=== PATIENT | male | born 1950 | race African-American/Black ===

== ENCOUNTER 2016-07-09 18:13 | Inpatient (IN) ==
[2016-07-09] MEDS ORDERED: NS 1,000 ML IV ONE ×2 (18:20→18:36)
[2016-07-09 18:38] LABS: ALLEN TEST YES; BE -0.8 mmoll (-3.0-3.0); BLOOD TYPE ARTERIAL; DRAW SITE L RADIAL; METHB 1.5 % (0.0-1.5); O2(CT) 15.9 mL/dL (15.0-23.0); PCO2(98.6) 44 mmHg (35-45); PO2(98.6) 74 mmHg (60-100); SAMPLE BLOOD; SAO2 97.8 % (95.0-100.0); THB 12.5 g/dL (11.5-17.4); pH(98.6) 7.36 (7.35-7.45)
[2016-07-09 18:39] LABS: MODALITY CANNULA
[2016-07-09 18:48] LABS: MANUAL DIFF NEEDED? NO
[2016-07-09 18:51] LABS: EOS# 0.11 X1000 (0.0-0.7); EOS% 2.2 % (0.0-10.0); HEMATOCRIT 39.1 % (42.0-52.0); LYMPH# 1.87 X1000 (1.2-3.4); MCH 32.2 PG (27-31); MCHC 33.2 g/dL (33-37); MCV 96.8 FL (81-99); MONO# 0.53 X1000 (0.11-0.59); MONO% 10.5 % (1.7-9.3); MPV 10.5 FL (7.4-10.4); NEUT% 49.3 % (42.2-75.2); PLT 98 X1000 (130-400); RBC 4.04 XMIL (4.7-6.1)
[2016-07-09 19:21] LABS: AGAP 15; ALBUMIN 3.2 g/dL (3.5-5.0); ALKALINE PHOSPHATASE 60 U/L (32-122); BUN 16 mg/dL (8-22); CALCIUM 8.1 mg/dL (8.8-10.2); CHLORIDE 107 mmol/L (98-107); CK PROFILE 94 U/L (24-204); COSMO 285; GOT 17 U/L (10-34); GPT 13 U/L (10-44); MAGNESIUM 2.1 mg/dL (1.5-2.7); POTASSIUM 3.7 mmol/L (3.5-5.1); SODIUM 142 mmol/L (136-145); TCO2 20 mmol/L (25-35); TOTAL BILIRUBIN 0.42 mg/dL (0.20-1.00); TOTAL PROTEIN 5.9 g/dL (6.3-8.3)
[2016-07-09] MEDS ORDERED: ATIVAN IV ONE (19:53)
[2016-07-09] MEDS ORDERED: KEPPRA 1,000 MG in NS 100 ML IV ONE (19:53)
--- NOTE | 2016-07-09 20:46 | HISTORY AND PHYSICAL ---
PRIMARY CARE PHYSICIAN: Dr. Sanchez. CHIEF COMPLAINT: Mental status changes. HISTORY OF PRESENTING ILLNESS: This is a 65-year-old male with a previous history of TIA, hypertension, had presented to the emergency department because family found the patient unresponsive. Patient apparently had also low blood pressure. He was evaluated in the ER, he was somewhat hypotensive and he was given IV fluids and his blood pressure improved. However patient still was aphasic, not really able to communicate. He was also urinary incontinent. He had also some posturing during his examination and it was suspected possibly he was having a seizure. He was treated in the ER with Ativan and Keppra and the patient will need hospitalization for further management. Due to patient's current status he is unable to provide any history and most of the history is obtained from previous records. PAST MEDICAL HISTORY: Includes hypertension, arthritis, TIA. PAST SURGICAL HISTORY: None. ALLERGIES: No known drug allergies. CURRENT MEDICATIONS: As listed in MAR. SOCIAL HISTORY: A 40 pack years history of smoking, history of alcohol abuse, history of drug use in the past. FAMILY HISTORY: No history of coronary disease. REVIEW OF SYSTEMS: Unable to assess due to patient being aphasic. PHYSICAL EXAMINATION: GENERAL: The patient is resting comfortably. He is aphasic. VITAL SIGNS: Temperature 97.1 degrees, pulse 60, respirations 16, blood pressure 85/48. Repeat blood pressure is 150/78 after IV fluids. He is saturating 97%. HEENT: Atraumatic, normocephalic. NECK: No masses. CHEST: Clear to auscultation. CARDIOVASCULAR: Regular rate and rhythm. ABDOMEN: Soft. Positive bowel sounds. EXTREMITIES: No edema. NEURO: He is awake, however he is not communicating. : No bladder distention. SKIN: Warm. LABORATORIES AND STUDIES: WBC 5.06, hemoglobin 13.0, hematocrit 39.1, platelets is 98,000. Sodium 142, potassium 3.7, chloride 107, CO2 20, BUN is 16, creatinine is 1.4, glucose is 119. ASSESSMENT: A 65-year-old male with a history of hypertension, transient ischemic attack had presented to the emergency department due to mental status changes. It was suspected that he was having a seizure and possibly transient ischemic attack also. Patient will need hospitalization for further management. 1. Altered mental status. 2. Suspected seizures. 3. Possible transient ischemic attack will need to r/o CVA 4. Hypotension 5. Tobacco abuse. PLAN: 1. We will admit patient to medical floor with telemetry. 2. We will continue with neuro checks. 3. We will put patient on seizure precautions and continue patient Ativan and Keppra. 4. We will check an MRI of the brain. 5. Continue with IV fluids and monitor for any hypotensive signs. hold all antihypertensive home medication. 6. Will consider nicotine patch once patient is more alert. 7. Put patient on DVT prophylaxis with SCDs. 8. We will continue to follow and reassess. cc: Maury Mcclure MD MTDD
--- NOTE | 2016-07-09 20:47 | Diag Imaging Result Document ---
PROCEDURE NAME: HEAD W/O CONTRAST - 07/09/2016 STUDY: CT head without contrast. PROTOCOL: A dose reduction protocol was used. COMPARISON: Compared with 02/18/2016. There are chronic ischemic changes with scattered old white matter infarcts, similar to the previous exam. There is a new low-density area which extends from the superior aspect of the head of the caudate nucleus to the anterior basal ganglia region on the left. This measures about 3 x 1.5 cm in maximum axial dimensions and is suspicious for acute or subacute infarct. There is no evidence of intracranial hemorrhage, mass effect, midline shift, or hydrocephalus. There is mild ventricular asymmetry similar to the previous exam and likely representing congenital variant. IMPRESSION: 1. An approximately 3 x 1.5 cm infarct extending from the superior head of caudate nucleus to the anterior basal ganglia on the left, which may be acute or subacute. 2. No hemorrhage or mass effect. [facility]
--- NOTE | 2016-07-09 21:17 | PROVIDER DOCUMENTATION ---
This chart was entered by Chano Gill Scribe, acting as scribe for Melvin Woods MD. HPI-General Adult - General Stated Complaint: unresponsive Time Seen by Provider: 07/09/16 18:18 Source: EMS Allergies/Adverse Reactions: Patient Allergies Allergy/AdvReac Type Severity Reaction Status Date / Time No Known Allergies Allergy Verified 08/12/14 10:36 Home Medications: Home Medication List Medication Instructions Recorded Confirmed Last Taken Type Losartan/Hydrochlorothiazide 1 each PO QAM 07/14/14 02/18/16 07/14/14 History [Losartan-Hctz 100-12.5 mg Tab] Ibuprofen [Motrin] 800 mg PO Q8H PRN PRN #20 tablet 08/12/14 02/18/16 Unknown Rx Methocarbamol [Robaxin-750] 750 mg PO TID #14 tablet 08/12/14 02/18/16 Unknown Rx Omeprazole [Prilosec] 20 mg PO DAILY@0700 #7 capsule 08/12/14 02/18/16 Unknown Rx Aspirin 81 mg PO DAILY #0 tablet 02/19/16 Unknown Rx Clopidogrel Bisulfate [Plavix] 75 mg PO DAILY #30 tablet 02/19/16 Unknown Rx Hydralazine [Apresoline] 25 mg PO BID #60 tablet 02/19/16 Unknown Rx Losartan [Cozaar] 100 mg PO QAM #0 tablet 02/19/16 Unknown Rx - History of Present Illness -Gen Adult Nature of Presenting Problems: Pt is a 65 yom who presents to ER via EMS after being found unresponsive on his front porch by his son. EMS reports that pt was diaphoretic, hypotensive, hypoxic, incontinent of urine, and bradycardic with minimal to no response. EMS reports that pt's O2 sat came up to 95% after being put on 15L O2. Location of Pain/Injury: reports: generalized Pain Radiation: reports: no radiation Quality of Pain: reports: none Severity: reports: severe Onset/Duration: reports: unsure Timing: reports: still present Associated Symptoms: reports: syncope, other (unresponsive) Review of Systems - Adult - REVIEW OF SYSTEMS - ADULT ROS:: limited per condition Constitutional: reports: fatique, other (diaphoretic). denies: chills, fever, night sweats, weight gain, weight loss Eyes: reports: no symptoms reported Ears, Nose, Mouth & Throat: reports: no symptoms reported Cardiovascular: reports: syncope, other (bradycardic; hypotensive). denies: chest pain, palpitations Respiratory: reports: other (hypoxic). denies: excessive sputum production, hemoptysis Gastrointestinal: reports: no symptoms reported Genitourinary: reports: no symptoms reported Musculoskeletal: reports: no symptoms reported Integumentary: reports: no symptoms reported Neurological: reports: no symptoms reported Psychiatric: reports: no symptoms reported Endocrine: reports: no symptoms reported Hematologic/Lymphatic: reports: no symptoms reported Allergic/Immunologic: reports: no symptoms reported All Other Systems: Reviewed and Negative Past History - Adult - PAST MEDICAL HISTORY-ADULT Review of Records: reports: Nursing Assessment Review, Medications Reviewed Cardiovascular: reports: HTN Musculoskeletal: reports: arthritis - PRIOR SURGERIES/PROCEDURES Surgical/Procedure History: reports: reviewed, not pertinent - IMMUNIZATION STATUS Childhood Immunizations: See Nurse Assessment Flu Vaccine: See Nurse Assessment - FAMILY HISTORY Family History: reviewed, not pertinent Physical Exam-General - PHYSICAL EXAM-ADULT Initial Vital Signs Reviewed: Yes - CONSTITUTIONAL General Appearance: severe distress, other (unresponsive). negative: appears well, alert, no apparent distress - EYES Eyes: PERRL/EOMI (PER;midrange/sluggish response), pink conjunctivae, fundi clear, no AV nicking - RESPIRATORY Respiratory: chest non-tender, lungs clear, normal breath sounds, no pleuratic chest pain, no respiratory distress, no accessory muscle use - CARDIOVASCULAR Cardiovascular: normal peripheral pulses, bradycardia, other (hypotensive (85/48 )). negative: regular rate, rhythm - PSYCHIATRIC Psych/Mental Status: disheveled, other (decreased resposiveness). negative: normal mood/affect, normal thought content, normal thought process, oriented x 3 Progress - PLAN OF CARE/RESULTS Progress/Plan/Lab Results: Vital Signs - 8 hr 07/09/16 18:27 07/09/16 20:04 Temperature 97.1 F L Pulse Rate 60 75 Respiratory Rate 16 23 Blood Pressure 85/48 150/78 O2 Sat by Pulse Oximetry 97 96 Laboratory Results - last 24 hr 07/09/16 07/09/16 07/09/16 18:25 18:35 18:35 WBC 5.06 RBC 4.04 L Hgb 13.0 L Hct 39.1 L MCV 96.8 MCH 32.2 H MCHC 33.2 RDW Std Deviation 12.5 Plt Count 98 L MPV 10.5 H Immature Gran % (Auto) 0.0 Neut % (Auto) 49.3 Lymph % (Auto) 37.0 Glynn % (Auto) 10.5 H Eos % (Auto) 2.2 Baso % (Auto) 1.0 H Immature Gran # (Auto) 0.00 Neut # (Auto) 2.50 Lymph # (Auto) 1.87 Glynn # (Auto) 0.53 Eos # (Auto) 0.11 Baso # (Auto) 0.05 Specimen Type ARTERIAL Sample Site L RADIAL pH 7.36 pCO2 44 pO2 74 HCO3 24.1 Base Excess -0.8 Oxyhemoglobin 90.4 L ABG O2 Sat (Calculated) 15.9 ABG O2 Saturation 97.8 ABG Carboxyhemoglobin 6.10 H* ABG Methemoglobin 1.5 Darryl Test YES A-a O2 Difference 99.0 Total Hemoglobin 12.5 Lactate 2.00 Liter Flow 3.0 Blood Gas Modality CANNULA FiO2 % 32.0 Sodium Potassium Chloride Carbon Dioxide Anion Gap BUN Creatinine Estimated GFR/1.73 m2 BUN/Creatinine Ratio Glucose Calculated Osmolality Calcium Magnesium Total Bilirubin AST ALT Alkaline Phosphatase Creatine Kinase Troponin T Total Protein Albumin Globulin Albumin/Globulin Ratio Plasma/Serum Ethyl Alc 07/09/16 07/09/16 18:35 18:35 WBC RBC Hgb Hct MCV MCH MCHC RDW Std Deviation Plt Count MPV Immature Gran % (Auto) Neut % (Auto) Lymph % (Auto) Glynn % (Auto) Eos % (Auto) Baso % (Auto) Immature Gran # (Auto) Neut # (Auto) Lymph # (Auto) Glynn # (Auto) Eos # (Auto) Baso # (Auto) Specimen Type Sample Site pH pCO2 pO2 HCO3 Base Excess Oxyhemoglobin ABG O2 Sat (Calculated) ABG O2 Saturation ABG Carboxyhemoglobin ABG Methemoglobin Darryl Test A-a O2 Difference Total Hemoglobin Lactate Liter Flow Blood Gas Modality FiO2 % Sodium 142 Potassium 3.7 Chloride 107 Carbon Dioxide 20 L Anion Gap 15 BUN 16 Creatinine 1.4 H Estimated GFR/1.73 m2 > 60 BUN/Creatinine Ratio 11 Glucose 119 H Calculated Osmolality 285 Calcium 8.1 L Magnesium 2.1 Total Bilirubin 0.42 AST 17 ALT 13 Alkaline Phosphatase 60 Creatine Kinase 94 Troponin T < 0.010 Total Protein 5.9 L Albumin 3.2 L Globulin 2.7 Albumin/Globulin Ratio 1.2 Plasma/Serum Ethyl Alc Orders Category Date Time Status CHEST-PORTABLE [RAD] Stat Exams 07/09/16 18:20 Taken HEAD W/O CONTRAST [CT] Stat Exams 07/09/16 18:20 Draft ABG [RESP] Routine Lab 07/09/16 18:25 Completed ALCOHOL BLOOD Stat Lab 07/09/16 18:35 Completed CBC WITH ELECTRONIC DIFF [HEME] Stat Lab 07/09/16 18:35 Completed CK PROFILE [SP CHEM] Stat Lab 07/09/16 18:35 Completed CMP [COMPREHENSIVE METABOLIC PANEL] [CHEM] Stat Lab 07/09/16 18:35 Completed MAGNESIUM [CHEM] Stat Lab 07/09/16 18:35 Completed TROPONIN T Stat Lab 07/09/16 18:35 Completed UA NIMS W/REFLEX CULT [URINALYSIS] Stat Lab 07/09/16 18:19 Uncollected UDS [URINE DRUG SCREEN] Stat Lab 07/09/16 18:19 Uncollected 0.9% Sodium Chloride Inj [Ns] 1,000 ml Med 07/09/16 18:20 Discontinued IV 999 mls/hr 0.9% Sodium Chloride Inj [Ns] 1,000 ml Med 07/09/16 18:36 Discontinued IV 999 mls/hr Levetiracetam [Keppra] 1,000 mg Med 07/09/16 19:53 Discontinued 0.9% Sodium Chloride Inj [Ns] 100 ml IV NOW Lorazepam [Ativan] Med 07/09/16 19:53 Discontinued 1 mg IV NOW ONE EKG [EKG] Stat Ther 07/09/16 18:22 Ordered Transfer/Admit Order [TRANSFER] Routine Transfer 07/09/16 20:14 Ordered Result Diagrams: 07/09/16 18:35 07/09/16 18:35 - REASSESSMENT Reassessment #1 Time Reassessed: 18:40 Status: other (Son arrived and said that pt said "I can't feel my legs" approximately 30 minutes prior to EMS arriving. Pt has hx of HTN (with poor rx compliance) as well as hx of cocaine abuse.) - EKG 1 Time of EKG reading by physician:: 18:21 EKG Read and Signed by:: Melvin Woods EKG Interpretation (*Must complete 3 of following elements*): Normal Rate: 52 Rhythm: Sinus tachycardia - XRAY 1 XRAY: Bilateral XRAY Study: Chest Impression: See EMR Report XRAY Interpretation: Cardiomegaly and pulmonary edema - ER Preliminary - CT/MRI 1 CT Study: Head Impression: See EMR Report CT Results: Negative - ER Preliminary - CONSULTS/PCP/HOSPITALIST Notification #1 *Consult/PCP/Hospitalist*: Dr. Mcclure (Hospitalist) Time Discussed: 19:58 Consult Disposition: Admit Departure - Departure Time of Disposition Decision: 19:58 DIAGNOSIS: Altered mental status Disposition: ADMITTED INPATIENT 09 Certified Medical Emergency: Emergent Condition: Stable - Critical Care Note This patient required my direct personal management.: No This chart was documented by the indicated scribe, (Chano Gill Scribe) and accurately reflects the services I performed and decisions made by me, Melvin Holley MD, as attested by the provider's signature.
[2016-07-09 21:51] LABS: URINE CULTURE NEEDED? NO; URINE MICRO REVIEW NEEDED? NO; URINE SOURCE CATH
[2016-07-09 21:56] LABS: BILIRUBIN URINE NEGATIVE (NEGATIVE); BLOOD URINE MODERATE (NEGATIVE); COLOR STRAW; GLUCOSE URINE NEGATIVE (NEGATIVE); LEUKOCYTES URINE NEGATIVE (NEGATIVE); NITRITE URINE NEGATIVE (NEGATIVE); PROTEIN URINE NEGATIVE (NEGATIVE); SP GRAVITY URINE 1.005; TURBIDITY URINE CLEAR (CLEAR); UR EPITHELIAL CELLS <10 /HPF (<10); URINE BACTERIA NEGATIVE /HPF; URINE RBC <10 /HPF (<10); URINE WBC <10 /HPF (<10); UROBILINOGEN URINE NORMAL (NORMAL)
[2016-07-09 22:14] LABS: UR AMPHETAMINES QUAL NONE DETECTED (NONE DETECT); UR BARBITUATES QUAL NONE DETECTED (NONE DETECT); UR BENZODIAZEPIN QUAL NONE DETECTED (NONE DETECT); UR CANNABINOIDS QUAL NONE DETECTED (NONE DETECT); UR COCAINE QUAL PRESUMPTIVE POSITIVE (NONE DETECT); UR METHADONE QUAL NONE DETECTED (NONE DETECT); UR OPIATES QUAL NONE DETECTED (NONE DETECT); UR OXYCODONE QUAL NONE DETECTED (NONE DETECT); UR PCP QUAL NONE DETECTED (NONE DETECT)
[2016-07-09] MEDS ORDERED: ATIVAN IV PRN (22:56)
[2016-07-09] MEDS: NS 1,000 ML IV SCH (23:19)
--- NOTE | 2016-07-10 02:21 | Diag Imaging Result Document ---
PROCEDURE NAME: CHEST-PORTABLE - 07/09/2016 PORTABLE CHEST: TIME: 1855 hours. COMPARISON: 02/18/2016. FINDINGS: Allowing for the AP projection, heart size appears upper normal. There is prominence of central vascular markings. While some of this appears to be chronic, superimposed central vascular congestion is not excluded. There is no dense consolidation, substantial pleural effusion, or pneumothorax identified. IMPRESSION: Possible central vascular congestion. No evidence of pneumonia.
[2016-07-10 07:20] LABS: HEMATOCRIT 42.5 % (42.0-52.0); MCH 32.6 PG (27-31); MCHC 32.9 g/dL (33-37); MCV 98.8 FL (81-99); MPV 10.5 FL (7.4-10.4); RBC 4.3 XMIL (4.7-6.1)
[2016-07-10 07:34] LABS: AGAP 12; BUN 11 mg/dL (8-22); CALCIUM 8.1 mg/dL (8.8-10.2); CHLORIDE 108 mmol/L (98-107); COSMO 288; POTASSIUM 3.7 mmol/L (3.5-5.1); SODIUM 145 mmol/L (136-145); TCO2 25 mmol/L (25-35)
[2016-07-10] MEDS: KEPPRA 500 MG/NS 500 MG/100 ML IVPB IV SCH ×2 (09:53→23:52)
[2016-07-10] MEDS: NS 1,000 ML IV SCH (10:00)
--- NOTE | 2016-07-10 12:20 | PROGRESS NOTE ---
DATE: 07/10/2016 SUBJECTIVE: Patient is more awake in comparing with yesterday but does not answer any questions. OBJECTIVE: Vital Signs: Temperature 98.8 degrees, heart rate 52, respiratory 24, blood pressure 173/73, O2 saturation 100% on room air. General Examination: This is a 65-year-old male, lying in bed, in no acute distress. HEENT: Head is normocephalic, atraumatic. Anicteric sclerae and pale conjunctivae. Mucous membranes moist. Pupils equal, round, reactive to light and accommodation. Neck: Supple. No JVD noted. No carotid bruits. No lymphadenopathy. No thyromegaly. Cardiovascular: S1, S2 heard. No murmurs, gallops, or rubs. Regular rate and rhythm. Respiratory: Clear bilaterally to auscultation. No work of breathing or using accessory muscles. Abdomen: Soft, apparently nontender to palpation. Bowel sounds present. No signs of peritoneal irritation. Extremities: No clubbing, cyanosis, or edema. Neurological: Patient is lethargic although sometimes he is more awake in comparing with yesterday. Apparently he does not want to talk to me or he cannot talk. Moves 4 extremities spontaneously. ASSESSMENT AND PLAN: 1. Altered mental status. 2. Possible TIA versus a stroke. 3. Suspected seizure activity. 4. Tobacco abuse. PLAN: The patient was admitted to the hospital basically because he was unresponsive and here the ER reports that the CT of the head shows 3 x 1.5 infarct extending from the superior head of the caudate nucleus to the anterior basal ganglia but they said it could be acute or subacute but considering that this patient has an acute change in mental status I guess this is an acute stroke. We are going to consult physical therapy. We are going to do an MRI and MRI of the brain and Dr. Alvarez will be consulted as well. For possible seizures patient has been started on Keppra 500 mg IV q.12 hours. Also we will do an MRI MRA on next Tuesday. As mentioned in the H and P was mentioned hypotension. Actually the patient is hypertensive and considering this stroke we will do permissive hypertension for the 1st 48-72 hours. cc: Gary Kwan MD
[2016-07-10] MEDS ORDERED: STERILE WATER INJ. INJ PRN (15:05)
[2016-07-10] MEDS ORDERED: GEODON IM PRN (15:05)
[2016-07-11] MEDS: NS 1,000 ML IV SCH ×2 (00:02→10:41)
--- NOTE | 2016-07-11 12:19 | PROGRESS NOTE ---
DATE: 07/11/2016 SUBJECTIVE: Patient is a little bit more awake in comparing with yesterday. As per nursing staff, he was able to talk a little bit and walk around to the bathroom. OBJECTIVE: Vital Signs: Temperature 98.2 degrees, heart rate 47, respiratory 16, blood pressure 150/70, O2 saturation 94% on room air. General Examination: This is a 65-year-old male, lying in bed, in no acute distress. HEENT: Head is normocephalic, atraumatic. Anicteric sclerae. Pale conjunctivae. Mucous membranes moist. Neck: Supple. No JVD noted. No carotid bruits. No lymphadenopathy. No thyromegaly. Cardiovascular: S1 and S2 heard. No murmurs, gallops, or rubs. Regular rate and rhythm. Respiratory: Clear bilaterally to auscultation. No work of breathing or using accessory muscles. Abdomen: Soft. Nontender to palpation. Bowel sounds present. No organomegaly. Extremities: No clubbing, cyanosis, or edema. Peripheral pulses present in both legs. Neurological: Patient is awake but not oriented to time and person. Motor strength is 3 to 4/5 in the right upper extremity and the rest of the extremities are okay. ASSESSMENT: 1. Altered mental status. 2. Stroke. 3. Suspected seizure activity. 4. Tobacco abuse. 5. Cocaine abuse. PLAN: The patient was admitted to the hospital because he was unresponsive and although the CT of the chest at admission shows an infarct, they said this could be acute or subacute. In any case, we prefer to do an MRI of the brain with and without contrast and MRA of the neck and head. Dr. Alvarez will be consulted and although the consult was placed Tuesday night, will reschedule for tomorrow morning. For possible seizure, the patient has been started on Keppra 500 mg IV q.12 hours. At this point, we are going to continue monitoring this patient in the hospital. cc: Gary Kwan MD
[2016-07-11] MEDS: KEPPRA 500 MG/NS 500 MG/100 ML IVPB IV SCH (12:54)
--- NOTE | 2016-07-11 14:25 | ECHO REPORT ---
ORDER DATE: 07/10/2016 INTERPRETING PHYSICIAN: Dr. Ferrari REQUESTING PHYSICIAN: CLINICAL INDICATIONS: This is a 65-year-old male who has a stroke, TIA, hypertension, smoker. M-MODE MEASUREMENTS: Right ventricle: 3.4 cm. Left ventricle end diastole: 5.3 cm. Left ventricle end systole: 2.7 cm. Posterior wall: 1.3 cm. Interventricular septum: 1.3 cm. Left atrium: 4.1 cm. Aortic root: 2.7 cm. SUMMARY OF 2-DIMENSIONAL IMAGIN. Left ventricular function is normal. Ejection fraction is estimated at 67%. No wall motion abnormality is noted. The chamber is not dilated. 2. The right ventricle is mildly enlarged. 3. The aortic valve looks normal. Color flow mapping is unremarkable. 4. Mitral valve opens normally. Color flow mapping shows trace regurgitation. 5. Pulse wave Doppler of mitral inflow is normal. 6. Tissue Doppler of septal and lateral mitral annulus averages 11 cm. 7. Pulmonary venous flow is normal. 8. There is no diastolic dysfunction. 9. The aortic valve showed mild degree of regurgitation. 10.The tricuspid valve shows mild degree of regurgitation. 11.The inferior vena cava is not dilated. 12.The pulmonary pressure is estimated at 29 mmHg. 13.Pulmonic valve is unremarkable. 14.There is no pericardial effusion, mass or thrombus. Please take notice that the heart rate of this patient throughout the study was in the range of 44 to 52 beats per minute. Clinical correlation is recommended. cc: MD Gary Schilling MD
[2016-07-12] MEDS: NS 1,000 ML IV SCH ×2 (00:24→15:57)
[2016-07-12] MEDS: KEPPRA 500 MG/NS 500 MG/100 ML IVPB IV SCH ×2 (00:24→16:02)
[2016-07-12 06:09] LABS: MANUAL DIFF NEEDED? NO
[2016-07-12 06:18] LABS: EOS# 0.22 X1000 (0.0-0.7); EOS% 3.5 % (0.0-10.0); HEMATOCRIT 41.7 % (42.0-52.0); HEMOGLOBIN 14.2 g/dL (14.0-18.0); LYMPH# 3.35 X1000 (1.2-3.4); LYMPH% 53.6 % (20.5-51.1); MCH 32.4 PG (27-31); MCHC 34.1 g/dL (33-37); MCV 95.2 FL (81-99); MONO% 9.6 % (1.7-9.3); NEUT% 32.3 % (42.2-75.2); PLT 235 X1000 (130-400); RBC 4.38 XMIL (4.7-6.1)
[2016-07-12 06:34] LABS: AGAP 10; BUN 9 mg/dL (8-22); CALCIUM 8.7 mg/dL (8.8-10.2); CHLORIDE 106 mmol/L (98-107); COSMO 280; POTASSIUM 3.5 mmol/L (3.5-5.1); SODIUM 141 mmol/L (136-145); TCO2 25 mmol/L (25-35)
--- NOTE | 2016-07-12 12:26 | Diag Imaging Result Document ---
PROCEDURE NAME: MRI BRAIN W W/O CONTRAST - 07/12/2016 MRI OF THE BRAIN WITH AND WITHOUT IV CONTRAST: COMPARISON: CT head dated 07/09/2016. No prior MRI brain is available for comparison. FINDINGS: There is an acute infarct on the left that involves the left basal ganglion and left caudate nucleus that was also seen on the previous CT. On MRI, it is now apparent that is more extensive with patchy cortical involvement of the left frontal lobe, left parietal lobe, and, to a lesser degree, the left temporal lobe. The infarct appears to predominantly involve the left MCA distribution and perhaps a small portion of the left anterior cerebral artery superiorly. No other acute infarcts are appreciated. There is an old focal infarct involving the right frontal lobe. There is patchy T2/FLAIR hyperintensity in the periventricular and subcortical white matter as well as the pontine white matter suggesting microangiopathy. There is enhancement involving the portion of the infarct in the deep olea matter on the left. This indicates that it has entered the subacute stage with disruption of the blood-brain barrier. No significant gross hemorrhage is appreciated. No intracranial mass is identified. There is no significant mass effect. Surrounding soft tissues and bony structures are essentially unremarkable. IMPRESSION: 1. Late acute/early subacute infarct involving the left hemisphere, predominantly in the MCA distribution as detailed above. 2. Other chronic intracranial changes as described. [facility]
--- NOTE | 2016-07-12 12:29 | Diag Imaging Result Document ---
PROCEDURE NAME: MRA BRAIN W/O CONTRAST - 07/12/2016 COMPARISON: None available. FINDINGS: There is focal mild narrowing involving the M1 segment of the left MCA. There is intermittent atherosclerotic irregularity and focal stenosis involving the M2 and higher branches of the left MCA. A few of these branches appear to be focally completely occluded but reconstitute. There is no evidence of flow-limiting stenosis involving the right MCA. No definite flow limiting stenosis is identified involving the remainder of the arteries comprising the [place] of [place] including the posterior cerebral arteries and anterior cerebral arteries. No discrete cerebral aneurysm or vascular malformation is appreciated. IMPRESSION: Patchy atherosclerotic irregularity and stenosis involving the left MCA, mainly at the M2 and higher order branches.
--- NOTE | 2016-07-12 12:30 | Diag Imaging Result Document ---
PROCEDURE NAME: MRA NECK W/CONT - 07/12/2016 COMPARISON: None available. FINDINGS: There is no evidence of flow-limiting stenosis, vascular malformation, or aneurysm involving the common carotid arteries, internal carotid arteries, external carotid arteries, or vertebral arteries, bilaterally. The vertebral arteries are codominant. IMPRESSION: Unremarkable MRA neck.
--- NOTE | 2016-07-12 14:05 | EKG Report ---
Test Performed on : 07/09/2016 6:21:47 PM Test Reason : ED. Cancelled in error Blood Pressure : / mmHG Vent. Rate : 052 BPM Atrial Rate : 052 BPM P-R Int : 162 ms QRS Dur : 102 ms QT Int : 476 ms P-R-T Axes : 022 080 066 degrees QTc Int : 442 ms Sinus bradycardia. Otherwise normal ECG When compared with ECG of 18-FEB-2016 13:12, No significant change was found Unconfirmed Result
--- NOTE | 2016-07-12 21:39 | CONSULTATION ---
DATE OF CONSULTATION: 07/12/2016 HISTORY OF PRESENT ILLNESS: Mr. Reno has had a stroke. He had a sudden onset of right-sided weakness, with difficulty speaking. He was noted to have some altered awareness or inattention initially, but that has improved. Workup includes brain MRI done with and without contrast today, showing evidence of fairly extensive new left MCA territory infarction. There is evidence of old right frontal encephalomalacia. Brain MRA shows possible left middle cerebral artery stenosis. Cervical MRA is unremarkable. Urine drug screen was positive for cocaine again this admission, as before. He had presented February 2016 with clinically apparent acute stroke, causing right-sided weakness and drug screen positive for cocaine then. He has been afebrile this time. Systolic blood pressure was initially 80s, mostly 130s to 170s now. Heart rate has ranged from 40s to 90s. He has been afebrile. There was question of seizure earlier this admission, and he was started on levetiracetam. PHYSICAL EXAMINATION: Mr. Reno is awake, alert, attentive. He responded slowly , but appropriately. Speech is minimally dysarthric, but communication is mostly slow. He followed some simple commands, but had trouble with commands requiring right/left distinction and digit distinction. There was some perseveration. He has full visual east tested grossly by confrontational finger counting. Extraocular movements are full. Facial motility is diminished on the right in an upper motor neuron pattern. He has right hemiparesis, grading 4/5 in the arm and 4+/5 in the leg. He had some difficulty with right hand on [id number], but did well with the left. He did rapid alternating movements a little better with the left hand than the right. Tone is increased in the right arm. He had such variable responses that I do not think sensation tested by pinprick and light touch is valid. I did not test his gait. IMPRESSION: 1. Imaging evidence of acute dominant left hemisphere infarction, consistent with his clinical finding of right hemiparesis and possible mild dysphasia. 2. History of stroke a few months ago, with right-sided weakness, and again cocaine on board. 3. Question of seizure. I do not have details. I did not see any definite seizure-like behavior during my time at the bedside. I will order an EEG and follow on levetiracetam. Thanks for asking me to see Mr. Reno. cc: Anastasiya Alvarez III, MD MTDD
[2016-07-13] MEDS: KEPPRA 500 MG/NS 500 MG/100 ML IVPB IV SCH ×2 (04:18→16:09)
[2016-07-13] MEDS: NS 1,000 ML IV SCH ×2 (04:19→16:06)
--- NOTE | 2016-07-13 07:36 | PROGRESS NOTE ---
DATE: 07/12/2016 SUBJECTIVE: The patient is more awake today. The patient able to talk a little bit and walk around to the bathroom. OBJECTIVE: Vital Signs: Temperature 97.9 degrees, heart rate 60, respiratory rate 26. Blood pressure 173/88. O2 saturation 100% on room air. General: This is a chronically ill-looking, 65- year-old -[place] male, looking older than his age, lying in bed, in no acute distress. HEENT: Head is normocephalic and atraumatic. Anicteric sclerae and pale conjunctivae. Mucous membranes moist. Neck supple. No JVD noted. No carotid bruits. No lymphadenopathy. No thyromegaly. Cardiovascular: S1, S2 heard. No murmurs, gallops, or rubs. Regular rate and rhythm. Respiratory: Clear bilaterally to auscultation. No work of breathing or using accessory muscles. Abdomen is soft, nontender to palpation. Bowel sounds present. No organomegaly. Extremities: No clubbing, cyanosis, or edema. Peripheral pulses present in both legs. Neurologic: The patient is awake, but not oriented to time or person. Motor strength 3 to 4/5 in right upper extremities, and the rest of the extremities are okay. ASSESSMENT AND PLAN: 1. Acute stroke. 2. Altered mental status. 3. Suspected seizure activity. 4. Tobacco abuse. 5. Cocaine abuse. The patient was admitted to the hospital because he was found unresponsive. CT scan of the head on admission shows an infarct they say that could be acute on subacute, so in any case, we have ordered an MRI of the brain and also MRI of the neck and head. Dr. Alvarez has been consulted and consultation is still pending. We are going to continue with the same management. For seizure, the patient is on Keppra 500 mg IV q.12 hours. EEG will be requested at the discretion with the neurologist. Definitely, this patient will need a rehab facility. mold worker has been involved in the case. cc: Gary Kwan MD
[2016-07-13 07:49] LABS: MANUAL DIFF NEEDED? NO
[2016-07-13 07:59] LABS: BASO% 1.1 % (0.0-0.8); EOS% 4.8 % (0.0-10.0); HEMATOCRIT 41.7 % (42.0-52.0); HEMOGLOBIN 14.1 g/dL (14.0-18.0); LYMPH# 3.43 X1000 (1.2-3.4); LYMPH% 54.4 % (20.5-51.1); MCH 32.2 PG (27-31); MCHC 33.8 g/dL (33-37); MCV 95.2 FL (81-99); MONO# 0.58 X1000 (0.11-0.59); MONO% 9.2 % (1.7-9.3); MPV 9.7 FL (7.4-10.4); NEUT% 30.5 % (42.2-75.2); PLT 244 X1000 (130-400); RBC 4.38 XMIL (4.7-6.1)
[2016-07-13 08:18] LABS: AGAP 11; BUN 9 mg/dL (8-22); CALCIUM 8.5 mg/dL (8.8-10.2); CHLORIDE 104 mmol/L (98-107); COSMO 278; POTASSIUM 3.8 mmol/L (3.5-5.1); SODIUM 140 mmol/L (136-145); TCO2 25 mmol/L (25-35)
--- NOTE | 2016-07-13 14:49 | PROGRESS NOTE ---
DATE: 07/13/2016 SUBJECTIVE: Mr. Reno is awake and alert, sitting up on the bed, using his right arm purposefully, vigorously, much more spontaneously than yesterday. He still has some trouble finding words, but I believe his dysphasia is also improved. He told me that he was not taking his medications regularly prior to admission. His home medicine list includes both aspirin and clopidogrel. He is familiar with those medicines and believes that he has taken them in the past. I cannot tell from his report whether he took aspirin and Plavix together or had monotherapy with each. Either way, it is clear he has not been taking medicines as directed. In light of his young age and evidence of acute ischemic stroke, I think it would be reasonable to recommend dual antiplatelet management with aspirin and clopidogrel together, at least short term. We can reconsider if he has any bleeding or bruising problems. His blood pressures have ranged 130s to 170s recently in the hospital. He has had antihypertensive medicines recommended in the past but I believe he was not taking those. In light of the acute ischemic stroke, I would continue following blood pressure conservatively short term, but would recommend more aggressive management down the road Workup here includes lipid profile showing normal triglycerides 92, total cholesterol 158, LDL 114, VLDL 18, HDL 37. In light of his acute ischemic stroke and other risk factors, I think it would be reasonable to treat him with a statin. He has had some very mildly elevated blood sugars which may be postprandial, but I am not certain about that. If he does have consistent blood sugar elevation, I would treat that aggressively. I have strongly encouraged him to stop using cocaine. Of all management options available, I believe that may be the most important in reducing his risk for future stroke. Thanks for asking me to see Mr. Reno. cc: MD ABDULAZIZ Lauren III
--- NOTE | 2016-07-13 15:09 | PROGRESS NOTE ---
DATE: 07/13/2016 SUBJECTIVE: This patient is more awake today. He answers still slow but appropriate. Physical therapy is on board and neurology department is on board as well. OBJECTIVE: Vital Signs: Temperature 98.9 degrees, pulse 56, respiratory rate 19, blood pressure 145/75, oxygen saturation 97% on room air. HEENT: Head normocephalic. No trauma. PERRLA. Neck: Supple. No JVD. No masses. Central trachea. Cardiovascular: RRR. No murmurs. Chest: Clear to auscultation. No wheezing. No rales. Abdomen: Soft, nontender, nondistended. No hepatosplenomegaly. Extremities: No clubbing, cyanosis, or edema. Neurological: The patient is alert. He is oriented x2. He is not oriented in time. His strength is 3/5 in the right upper extremity and 4 to 5/5 in the right lower extremity. His answers are appropriate but slow and sometimes it is hard to understand. This patient was eating at the time of my evaluation and he was not choking; he swallowed okay. LABORATORY: WBC 6.3, hemoglobin 14.1, hematocrit 41.7, platelets 244,000. Sodium 140, potassium 3.8, chloride 104, bicarbonate 25, BUN 9, creatinine 0.9, glucose 97, calcium 8.5. ASSESSMENT AND PLAN: 1. Acute stroke with evidence of acute dominant left hemisphere infarction and right hemiparesis. Neurology department is following this patient. Probably they will restart this patient on aspirin and Plavix today. 2. History of stroke a few months ago with right-sided weakness. Aware. 3. Altered mental status. This is getting better. He is more alert today. 4. Suspected seizure activity. EEG has been requested by neurology. Will continue to monitor. 5. Drug abuse. We have a urine toxicology that showed cocaine in the urine. 6. Tobacco abuse. This patient has been highly advised against tobacco abuse. I will continue with daily cessation education. 7. Hypertension. I will restart this patient on his home medications today. He is on hydralazine 25 mg p.o. t.i.d. and losartan hydrochlorothiazide 100 mg/12.5 mg p.o. daily. cc: Vicente Michael MD
[2016-07-13] MEDS: APRESOLINE PO SCH (20:21)
[2016-07-14] MEDS: NS 1,000 ML IV SCH ×2 (04:54→17:07)
[2016-07-14] MEDS: KEPPRA 500 MG/NS 500 MG/100 ML IVPB IV SCH ×3 (04:54→17:12)
[2016-07-14 07:25] LABS: MANUAL DIFF NEEDED? NO
[2016-07-14 07:42] LABS: BASO% 1.3 % (0.0-0.8); EOS# 0.39 X1000 (0.0-0.7); EOS% 6.6 % (0.0-10.0); HEMATOCRIT 41.9 % (42.0-52.0); LYMPH% 50.4 % (20.5-51.1); MCHC 33.4 g/dL (33-37); MCV 95.9 FL (81-99); MONO# 0.53 X1000 (0.11-0.59); MONO% 8.9 % (1.7-9.3); MPV 10.4 FL (7.4-10.4); NEUT% 32.8 % (42.2-75.2); PLT 243 X1000 (130-400); RBC 4.37 XMIL (4.7-6.1)
[2016-07-14 07:47] LABS: AGAP 11; BUN 9 mg/dL (8-22); CALCIUM 8.3 mg/dL (8.8-10.2); CHLORIDE 103 mmol/L (98-107); COSMO 280; POTASSIUM 3.7 mmol/L (3.5-5.1); SODIUM 141 mmol/L (136-145); TCO2 27 mmol/L (25-35)
--- NOTE | 2016-07-14 08:22 | PROGRESS NOTE ---
DATE: 07/14/2016 Mr. Reno is awake and alert. He has right facial droop, right hemiparesis, right dysdiadochokinesis. All of this is stable. There is no evidence of new neurologic deficit. I do not have any new suggestion today from a neurologic standpoint. Thanks for asking me to see Mr. Reno. cc: Anastasiya Alvarez III, MD MTDRenata
--- NOTE | 2016-07-14 08:34 | EEG REPORT ---
DATE: 07/12/2016 VISIT INFORMATION BASIC INFORMATION: DATE OF EXAM: 07/13/2016. REFERRING PHYSICIAN: Anastasiya Alvarez MD. EEG NUMBER: [id number]. METAL FABRICATION SUPERVISOR: Shanna Hernandez. BACKGROUND INFORMATION: TECHNIQUE: A digital EEG is performed with extra electrode channel for EKG. HISTORY OF PRESENT ILLNESS: 65-year-old male with a history of stroke presents with a new left MCA territory stroke. He has old right frontal encephalomalacia on imaging. His urine drug screen has been positive for cocaine. There was a question of a seizure earlier in the admission, and he was started on Keppra. A EEG is ordered to evaluate for evidence of seizure. FINDINGS: This is a technically limited study due to 60 hertz artifact. A moderately well-formed 9-10 hertz posterior dominant alpha rhythm is noted symmetrically in the occipital regions and attenuates with eye opening. The background consists of mixed alpha and beta frequencies. There is no abnormal diffuse slowing. No epileptiform discharges. No electrographic seizures. There is occasional subtle slowing noted primarily in the left frontocentral head region. Hyperventilation was not performed. Photic stimulation induced a normal photic driving response. The patient becomes drowsy but does not enter into stage 2 sleep. EKG is uninterpretable due to artifact. IMPRESSION AND RECOMMENDATIONS: This is an abnormal, technically limited, routine video EEG in the awake and drowsy state due to: 1. Occasional focal slowing in the left frontal region, primarily frontocentral. Focal slow is suggestive of focal cortical and subcortical abnormality, and a focal structural lesion in the area should be considered. This is consistent with his known new left MCA territory stroke. 3. No epileptiform discharges or seizures are seen. This does not rule out an underlying seizure disorder. cc: MD Anastasiya Brown III, MD MTDD
[2016-07-14] MEDS ORDERED: PLAVIX PO SCH (09:00)
[2016-07-14] MEDS ORDERED: HYDROCHLOROTHIAZIDE PO SCH (09:00)
[2016-07-14] MEDS ORDERED: COZAAR PO SCH (09:00)
[2016-07-14] MEDS ORDERED: ASPIRIN PO SCH (09:00)
[2016-07-14] MEDS ORDERED: LIPITOR PO SCH (09:00)
[2016-07-14] MEDS: APRESOLINE PO SCH (10:01)
--- NOTE | 2016-07-14 14:02 | DISCHARGE SUMMARY ---
ADMISSION DATE: 07/09/2016 DISCHARGE DATE: 07/14/2016 CONSULTATIONS: Dr. Anastasiya Alvarez with neurology. PERTINENT PROCEDURES: 1. Head CT showed approximately a 3 x 1.5 cm infarct extending into this period of caudate nucleus into the anterior basal ganglia on the left which may be acute or subacute. No hemorrhage or mass effect. 2. Echocardiogram showed an EF of 67%. No mass or thrombus seen. 3. Brain MRI showed largely acute early subacute infarct involving the left hemisphere predominantly in the MCA distribution. 4. Brain MRA showed patchy atherosclerotic irregularity and stenosis involving the left MCA mainly at M2 and higher order branches. 5. Neck MRA unremarkable. 6. EEG. Showed occasional slowing of the left frontal region primarily frontocentral. Focal swelling is suggested focal cortical and subcortical abnormality and focal structural lesion in that area should be considered. This is consistent with his new MCA territory infarction. No epileptiform discharges or seizures were seen. DISCHARGE DIAGNOSES: 1. Acute stroke with evidence of acute dominant left hemisphere infarct and right hemiparesis followed by neurology. Patient was started on aspirin and Plavix. The patient is being discharged home secondary to no insurance. Social workers were unable to place him in rehab secondary to him testing positive for cocaine. Again, patient has no insurance. [employer] worker is still continuing to find Home Health service with physical therapy. 2. Cerebrovascular accident a few months ago with right-sided weakness, aware. 3. Altered mental status. The patient is more alert now. 4. Suspected seizure activity. EEG was negative for seizures but did show slowing consistent with his new diagnosis of acute stroke. 5. Tobacco abuse. The patient has been highly advised against tobacco abuse as well as cessation daily. 6. Hypertension. Patient will continue on home medications. HOSPITAL COURSE: Mr. Reno is a 65-year-old male with a previous history of TIA, hypertension, arthritis, as well as stroke a few months ago with right-sided weakness, presented to the ED because the family found the patient unresponsive. He was evaluated in the ED, found to be somewhat hypotensive. He was given IV fluids. His blood pressure improved. However, the patient was still aphasic and not able to communicate. He was incontinent with urine. He also had some posturing during his examination. They suspected possible seizures. He was treated in the ED with Ativan and Keppra. The patient underwent a head CT that did show an approximate 3 x 1.5 cm infarct extending into this superior had the caudate nucleus into the anterior basal ganglia on the left which may be acute or subacute. The patient also had follow up with an echocardiogram as well as a brain MRI, MRA and a neck MRA that did show late acute or early subacute infarct involving the left hemisphere predominantly in the MCA distribution. Also, an EEG that did show focal slowing that was consistent with his new MCA territory infarction but no discharges or seizures were seen. The patient was followed by Neurology who suggested to continue with aspirin and Plavix. He has also been encouraged to stop using cocaine and to aggressively treat his high blood sugars. [employer] as well as PT was consulted to work with the patient secondary to the patient testing positive for cocaine. He has been denied rehab services. The patient is self- pay. [employer] Attorney is currently working to get the patient set up with home health and physical therapy. However they have not been successful yet. We are still awaiting a couple more options. The patient is being discharged home today. PHYSICAL EXAMINATION: Vital signs temperature is 98.5 degrees, heart rate 60, respirations 18, blood pressure 153/67, O2 is 99% on room air. DISCHARGE DIET: Regular. DISCHARGE MEDICATIONS: 1. Aspirin 81 mg p.o. daily. 2. Lipitor 40 mg p.o. daily. 3. Plavix 75 mg p.o. daily. 4. Apresoline 25 mg p.o. b.i.d. 5. Motrin 800 mg p.o. q.8 hours p.r.n. 6. Losartan/hydrochlorothiazide 1 each p.o. q.a.m. 7. Robaxin 750 mg p.o. t.i.d. 8. Prilosec 20 mg p.o. daily. FOLLOW-UP: The patient is being discharged home. Still awaiting approval for any home health and physical therapy. Again the patient has been denied rehab secondary to his cocaine use. He has been advised to follow a diet to keep his blood sugars under control, as well as to continue with his aspirin and Plavix, smoking cessation as well as the means to quit, and also to quit the use of cocaine. The patient will need to follow up with a primary care physician to a list that has been provided to him within 1 week. He can return to the ED for any worsening of symptoms. DISCHARGE TIME: 30 minutes. Dictated by GINA Drew for Vicente Michael MD cc: Vicente Michael MD
[2016-07-14 15:34] VITALS: BP 170/81
== END 2016-07-14 19:00 | disposition home health service (06) ==
LOC: ED 18:13 → SUATTDRO 21:17 → 3N 21:17
PROVIDERS: ATTEND Internal Medicine